=== PATIENT | female | born 1950 | race Caucasian/White ===

== ENCOUNTER → 2020-05-14 | Outpatient (CLI) | payer MEDICARE | END | disposition home or self-care (01) | LOC: CVU 15:34 | PROVIDERS: ATTEND Internal Medicine Cardiovascular Disease | DX: I08.8 Other rheumatic multiple valve diseases (principal); I10 Essential (primary) hypertension; I48.91 Unspecified atrial fibrillation | CPT/HCPCS: 93306 ==

== ENCOUNTER 2020-07-25 10:15 | Observation (INO) | payer MEDICARE ==
[~2020-07-25] VITALS: Ht 170.2 cm; Wt 77.6 kg
[2020-07-25 11:25] VITALS: BP 155/70
[2020-07-25] MEDS ORDERED: SODIUM CHLORIDE 0.9% 1,000 ML IV SCH (11:30)
[2020-07-25] MEDS ORDERED: lisinopril (11:38)
[2020-07-25] MEDS ORDERED: APIX5TAB PO (11:38)
[2020-07-25] MEDS ORDERED: NEBI5TAB3 PO (11:38)
[2020-07-25 12:27] LABS: BASOPHILS % (AUTO) 1 % (0-1); EOSINOPHILS % (AUTO) 2 % (1-7); LYMPHOCYTES % (AUTO) 26 % (22-44); MEAN CORPUSCULAR HEMOGLOBIN 32.1 pg (27.0-34.8); MEAN CORPUSCULAR HGB CONC 33.4 g/dL (32.4-35.8); MEAN PLATELET VOLUME 8.4 fL (7.4-10.4); MONOCYTES % (AUTO) 7 % (2-9); NEUTROPHILS % (AUTO) 64 % (42-75); PLATELET COUNT 278 x10^3/uL (130-400); RED BLOOD COUNT 4.28 x10^6/uL (3.82-5.3); RED CELL DISTRIBUTION WIDTH 13.6 % (9.6-15.2)
[2020-07-25 12:36] LABS: ALANINE AMINOTRANSFERASE 22 U/L (12-78); ALBUMIN 4.4 g/dL (3.4-5.0); ANION GAP 6 mmol/L (5-15); CALCIUM 9.1 mg/dL (8.5-10.1); CHLORIDE 114 mmol/L (98-107); CREATININE 1.24 mg/dL (0.55-1.02)
[2020-07-25 12:38] LABS: ALKALINE PHOSPHATASE 49 U/L (45-117); BILIRUBIN,TOTAL 0.3 mg/dL (0.2-1.0); MD NO; TOTAL PROTEIN 7.6 g/dL (6.4-8.2)
[2020-07-25] MEDS ORDERED: MIDAZOLAM 1 MG/ML, 2ML ONE (12:39)
[2020-07-25] MEDS ORDERED: FENTANYL PF 250 MCG/5ML ONE (12:39)
[2020-07-25] MEDS ORDERED: DEXAMETHASONE 4 MG/ML, 1ML ONE ×2 (12:40)
[2020-07-25] MEDS ORDERED: ROCURONIUM 10MG/ML,5ML ONE (12:40)
[2020-07-25] MEDS ORDERED: PROPOFOL 10 MG/ML, 20ML ONE (12:40)
[2020-07-25] MEDS ORDERED: LIDOCAINE 2%, 20ML ONE (12:47)
[2020-07-25] MEDS ORDERED: LIDOCAINE 1%, 20ML ONE (13:02)
[2020-07-25] MEDS ORDERED: EPHEDRINE 50 MG/ML, 1ML ONE (13:02)
[2020-07-25] MEDS ORDERED: PHENYLEPHRINE 10 MG/ML ONE (13:22)
[2020-07-25] MEDS ORDERED: HEPARIN 1,000 UNITS/ML, 10ML ONE ×2 (13:33)
[2020-07-25] MEDS ORDERED: FENTANYL PF 100 MCG/2ML ONE (14:06)
[2020-07-25] MEDS ORDERED: SUGAMMADEX 200 MG/2 ML IVPush ONE (15:03)
[2020-07-25] MEDS ORDERED: ONDANSETRON 2MG/ML, 2ML IVPush PRN ×2 (15:30)
[2020-07-25] MEDS ORDERED: ACETAMINOPHEN 325 MG TABLET PO PRN (15:30)
[2020-07-25] MEDS ORDERED: PROMETHAZINE 25 MG/ML, 1ML IVPush PRN (15:30)
[2020-07-25] MEDS ORDERED: EPHEDRINE 50 MG/ML, 1ML IVPush PRN (15:30)
[2020-07-25] MEDS ORDERED: PROMETHAZINE 12.5 MG SUPP PR PRN (15:30)
[2020-07-25] MEDS ORDERED: DIPHENHYDRAMINE 50 MG/ML, 1ML IVPush PRN ×2 (15:30)
[2020-07-25] MEDS ORDERED: FENTANYL PF 100 MCG/2ML IV PRN (15:30)
[2020-07-25] MEDS ORDERED: MIDAZOLAM 1 MG/ML, 2ML IV PRN (15:30)
[2020-07-25] MEDS ORDERED: LABETALOL 5MG/ML, 20ML IV PRN (15:30)
[2020-07-25] MEDS ORDERED: ZOLPIDEM 5MG TABLET PO PRN (15:30)
[2020-07-25] MEDS ORDERED: HYDROmorphone 1 MG/ML, 1ML INJ IVPush PRN (15:30)
[2020-07-25] MEDS ORDERED: DIAZEPAM 5 MG/ML, 2ML IVPush PRN (15:30)
[2020-07-25] MEDS ORDERED: hydrALAzine 20 MG/ML, 1ML IV PRN (15:30)
[2020-07-25] MEDS ORDERED: MEPERIDINE/PF 25MG/0.5ML IVPush PRN (15:30)
[2020-07-25] MEDS ORDERED: ALBUTEROL SULFATE 2.5 MG/3 ML NPPB PRN (15:30)
[2020-07-25] MEDS ORDERED: APIXABAN 5 MG TABLET ONE (15:37)
[2020-07-25] MEDS ORDERED: ACETAMINOPHEN 650 MG/20.3 ML UDC ONE (15:54)
[2020-07-25 16:35] VITALS: BP 123/77
[2020-07-25] MEDS: OXYcodone 5 MG/5 ML ORAL.SOL UDC PO PRN (17:33)
[2020-07-25 20:12] VITALS: BP 134/79
[2020-07-25] MEDS ORDERED: PROG100C10 PO (20:15)
[2020-07-25] MEDS ORDERED: Estradiol TP (20:15)
[2020-07-25] MEDS ORDERED: APIXABAN 5 MG TABLET PO SCH (21:00)
[2020-07-25] MEDS: APIXABAN 5 MG TABLET PO SCH (21:41)
[2020-07-25] MEDS: COLCHICINE 0.6 MG CAPSULE PO SCH (21:41)
[2020-07-26] MEDS: ACETAMINOPHEN 325 MG TABLET PO PRN ×2 (00:29→05:19)
[2020-07-26 03:45] VITALS: BP 120/69
[2020-07-26] MEDS ORDERED: NEBIVOLOL HCL 5 MG TABLET PO SCH (06:00)
[2020-07-26 07:18] VITALS: BP 116/65
[2020-07-26] MEDS: APIXABAN 5 MG TABLET PO SCH (07:44)
[2020-07-26] MEDS: COLCHICINE 0.6 MG CAPSULE PO SCH (07:44)
[2020-07-26] MEDS: OXYcodone 5 MG/5 ML ORAL.SOL UDC PO PRN (07:44)
[2020-07-26] MEDS ORDERED: ACET325T26 PO (08:06)
[2020-07-26] MEDS ORDERED: COLC0.6C3 PO (08:06)
== END 2020-07-26 11:03 | disposition home or self-care (01) ==
LOC: CACL 10:15 → EDIP 15:16 → 5SO 16:57 → DCLOUNGE 07-26 10:39
PROVIDERS: ADMIT Internal Medicine Cardiovascular Disease; ATTEND Internal Medicine Cardiovascular Disease
DX: I48.91 Unspecified atrial fibrillation (principal); Z20.822 Contact with and (suspected) exposure to COVID-19; I48.3 Typical atrial flutter; I10 Essential (primary) hypertension; Z79.01 Long term (current) use of anticoagulants; Z79.899 Other long term (current) drug therapy
CPT/HCPCS: 36415; 71046; 80053; 85025; 85347; 93005; 93306; 93312; 93321; 93325; 93613; 93655; 93656; 93657; 93662; C1730; C1732; C1759; C1766; C1893; C1894; G0378; J1100; J1644; J2250; J2370; J2704; J3010; J3490; U0003